=== PATIENT | male | born 1970 | race Caucasian/White ===

== ENCOUNTER 2024-04-14 10:54 | Inpatient (IN) | payer BC, MEDICAID ==
[~2024-04-14] VITALS: Ht 180.3 cm; Wt 127.0 kg
[~2024-04-14 10:54] MED LIST: XANAX
[2024-04-14 10:56] VITALS: BP_SYST 113; PULSE 108; RESP 18; TEMP 97.7; O2SAT 91
[2024-04-14 11:48] LABS: BASOPHILS % (AUTO) 0.3 % (0.0-2.0); EOSINOPHILS % (AUTO) 0.1 % (0.0-4.0); HEMATOCRIT 39.7 % (36-54); HEMOGLOBIN 13.9 g/dL (14.0-18.0); LYMPHOCYTES # (AUTO) 0.6 K/uL (1.0-5.5); MEAN CORPUSCULAR HEMOGLOBIN 37 pg (27-31); MEAN CORPUSCULAR HGB CONC 35 % (32-36); MEAN CORPUSCULAR VOLUME 107 fL (79.0-98.0); MONOCYTES # (AUTO) 0.8 K/uL (0.0-1.0); MONOCYTES % (AUTO) 7.1 % (1.7-9.3); NEUTROPHILS # (AUTO) 10.5 K/uL (1.8-7.7); NEUTROPHILS % (AUTO) 87.5 % (40.0-70.0); PLATELET COUNT (AUTO) 153 K/uL (130-430); RED BLOOD CELL COUNT(AUTO) 3.73 MIL/uL (4.2-6.2); RED CELL DISTRIBUTION WIDTH 16.3 % (9.0-15.0)
[2024-04-14 12:03] LABS: INR 1.7 (0.80-1.20); PROTHROMBIN TIME 17.3 SECS (9.5-12.5)
[2024-04-14 12:28] LABS: ALANINE AMINOTRANSFERASE 67 U/L (12-78); ALBUMIN 2.5 g/dL (3.4-4.8); ALCOHOL, BLOOD 115 mg/dL (<10); ANION GAP 10 (5-15); ASPARTATE AMINOTRANSFERASE 137 U/L (10-37); BILIRUBIN,DIRECT 5.8 mg/dL (0.0-0.3); CALCIUM 8.1 mg/dL (8.4-11.0); CARBON DIOXIDE 30 mmol/L (23-29); CREATININE 1.25 mg/dL (0.55-1.30); GFR AFRICAN AMERICAN 77 mL/min (>90); GLUCOSE 184 mg/dL (74-106); LIPASE 363 U/L (16-77); TOTAL BILIRUBIN 8.6 mg/dL (0.0-1.0); UREA NITROGEN, BLOOD 14 mg/dL (8-21)
[2024-04-14 12:35] LABS: CHLORIDE 79 mmol/L (98-107); GFR NON AFRICAN-AMERICAN 64 mL/min (>90); POTASSIUM 2.6 mmol/L (3.5-5.1); SODIUM SERUM 119 mmol/L (136-145)
[2024-04-14] MEDS: POTASSIUM CHLORIDE 20 MEQ TABLET.ER PO ONE (13:04)
[2024-04-14] MEDS ORDERED: METO50TA7 (13:25)
[2024-04-14] MEDS ORDERED: QUET300T2 (13:25)
[2024-04-14] MEDS ORDERED: MIRT-147 (13:25)
[2024-04-14 22:11] VITALS: BP_SYST 139; PULSE 82; RESP 18; TEMP 97.9
[2024-04-15 04:30] VITALS: BP_SYST 144; PULSE 82; RESP 18; TEMP 97.9; O2SAT 94
[2024-04-15 08:00] VITALS: BP_SYST 145; PULSE 89; RESP 20; TEMP 97.8; O2SAT 2; O2SAT 94
[2024-04-15] MEDS ORDERED: ONDANSETRON HCL 4 MG/2 ML VIAL IVP PRN (10:15)
[2024-04-15] MEDS ORDERED: HYDROcodone/ACETAMIN 5-325 MG TAB (NORCO/ VICODIN) PO PRN (10:15)
[2024-04-15] MEDS ORDERED: HYDROcodone/ACETAMIN 10-325 MG TAB PO PRN (10:15)
[2024-04-15] MEDS ORDERED: ACETAMINOPHEN 325 MG TABLET PO PRN (10:15)
[2024-04-15] MEDS ORDERED: NALOXONE HCL 0.4 MG/ML AMP (NARCAN) IVP PRN ×2 (10:15)
[2024-04-15 11:02] LABS: BASOPHILS % (AUTO) 0.2 % (0.0-2.0); EOSINOPHILS % (AUTO) 0.2 % (0.0-4.0); HEMATOCRIT 40.6 % (36-54); HEMOGLOBIN 14.1 g/dL (14.0-18.0); LYMPHOCYTES # (AUTO) 0.6 K/uL (1.0-5.5); LYMPHOCYTES % (AUTO) 5.2 % (20.5-51.5); MEAN CORPUSCULAR HEMOGLOBIN 37 pg (27-31); MEAN CORPUSCULAR HGB CONC 35 % (32-36); MEAN CORPUSCULAR VOLUME 106 fL (79.0-98.0); MONOCYTES % (AUTO) 7.8 % (1.7-9.3); NEUTROPHILS # (AUTO) 10.7 K/uL (1.8-7.7); NEUTROPHILS % (AUTO) 86.6 % (40.0-70.0); PLATELET COUNT (AUTO) 142 K/uL (130-430); RED BLOOD CELL COUNT(AUTO) 3.82 MIL/uL (4.2-6.2); RED CELL DISTRIBUTION WIDTH 16.3 % (9.0-15.0); WHITE BLOOD COUNT (AUTO) 12.3 K/uL (4.8-10.8)
[2024-04-15 11:17] LABS: ALBUMIN 2.3 g/dL (3.4-4.8); CALCIUM 8.2 mg/dL (8.4-11.0); CREATININE 1.18 mg/dL (0.55-1.30); POTASSIUM 3.1 mmol/L (3.5-5.1); TOTAL BILIRUBIN 9.8 mg/dL (0.0-1.0); TOTAL PROTEIN, SERUM 6.7 g/dL (6.4-8.3)
[2024-04-15 11:32] VITALS: BP_SYST 153; PULSE 93; RESP 16; TEMP 97.4; O2SAT 91
[2024-04-15] MEDS: LORazepam 2 MG/ML VIAL IVP PRN (12:00)
[2024-04-15] MEDS: FOLIC ACID 1 MG TABLET PO ONE (13:12)
[2024-04-15] MEDS: METOPROLOL SUCCINATE 50 MG TAB.SR.24H (TOPROL XL) PO ONE (13:14)
[2024-04-15] MEDS: MULTIVITAMINS TAB 1 TABLET PO ONE (13:15)
[2024-04-15] MEDS: THIAMINE HCL 100 MG TABLET PO ONE (13:22)
[2024-04-15] MEDS: NORMAL SALINE 5 ML DISP.SYRIN IVF SCH (15:11)
[2024-04-15] MEDS: chlordiazePOXIDE HCL 10 MG CAPSULE PO PRN (15:31)
[2024-04-15 15:57] VITALS: BP_SYST 138; PULSE 84; RESP 15; TEMP 97.8; O2SAT 96
[2024-04-15 19:00] VITALS: BP_SYST 136; PULSE 88; RESP 16; TEMP 97.6; O2SAT 96
[2024-04-15 20:00] VITALS: BP_SYST 136; PULSE 88; RESP 16; TEMP 97.6; O2SAT 96
[2024-04-15] MEDS: MIRTAZAPINE 15 MG TABLET PO SCH (23:35)
[2024-04-15] MEDS: QUEtiapine FUMARATE 100 MG TABLET PO SCH (23:35)
[2024-04-16] VITALS: BP_SYST 141; PULSE 84; RESP 16; TEMP 97.3; O2SAT 91
[2024-04-16 07:50] LABS: BASOPHILS % (AUTO) 0.2 % (0.0-2.0); EOSINOPHILS % (AUTO) 0.1 % (0.0-4.0); HEMATOCRIT 42.1 % (36-54); HEMOGLOBIN 14.6 g/dL (14.0-18.0); LYMPHOCYTES # (AUTO) 0.7 K/uL (1.0-5.5); LYMPHOCYTES % (AUTO) 5.5 % (20.5-51.5); MEAN CORPUSCULAR HEMOGLOBIN 37 pg (27-31); MEAN CORPUSCULAR HGB CONC 35 % (32-36); MEAN CORPUSCULAR VOLUME 108 fL (79.0-98.0); MONOCYTES # (AUTO) 0.9 K/uL (0.0-1.0); MONOCYTES % (AUTO) 7.1 % (1.7-9.3); NEUTROPHILS # (AUTO) 11.1 K/uL (1.8-7.7); NEUTROPHILS % (AUTO) 87.1 % (40.0-70.0); PLATELET COUNT (AUTO) 135 K/uL (130-430); RED BLOOD CELL COUNT(AUTO) 3.91 MIL/uL (4.2-6.2); RED CELL DISTRIBUTION WIDTH 16.3 % (9.0-15.0); WHITE BLOOD COUNT (AUTO) 12.7 K/uL (4.8-10.8)
[2024-04-16 08:00] VITALS: BP_SYST 150; PULSE 93; RESP 20; TEMP 97.6; O2SAT 91
[2024-04-16 08:07] LABS: ALBUMIN 2.3 g/dL (3.4-4.8); CALCIUM 8.3 mg/dL (8.4-11.0); CREATININE 1.05 mg/dL (0.55-1.30); POTASSIUM 3.3 mmol/L (3.5-5.1); TOTAL BILIRUBIN 10.9 mg/dL (0.0-1.0); TOTAL PROTEIN, SERUM 6.7 g/dL (6.4-8.3)
[2024-04-16 08:15] LABS: TOTAL IRON BIND. CAPACITY 149 ug/dL (250-450)
[2024-04-16 08:34] LABS: INR 1.7 (0.80-1.20); PROTHROMBIN TIME 17.1 SECS (9.5-12.5)
[2024-04-16] MEDS: THIAMINE HCL 100 MG TABLET PO SCH (09:00)
[2024-04-16] MEDS: MULTIVITAMINS TAB 1 TABLET PO SCH (09:00)
[2024-04-16] MEDS: METOPROLOL SUCCINATE 50 MG TAB.SR.24H (TOPROL XL) PO SCH (09:00)
[2024-04-16] MEDS: FOLIC ACID 1 MG TABLET PO SCH (09:00)
[2024-04-16 09:15] VITALS: O2SAT 92
[2024-04-16 11:12] VITALS: BP_SYST 149; PULSE 83; RESP 22; TEMP 97.8; O2SAT 93
[2024-04-16] MEDS: LACTULOSE 20 GM/30 ML UDC NG ONE (16:30)
[2024-04-16 16:48] VITALS: BP_SYST 150; PULSE 84; RESP 22; TEMP 97.9; O2SAT 94
[2024-04-16 20:00] VITALS: BP_SYST 140; PULSE 113; RESP 20; O2SAT 94
[2024-04-16] MEDS: prednisoLONE 15 MG/5 ML UDC PO ONE (21:00)
[2024-04-16] MEDS: cefTRIAXone 1 GM in D5W 50 ML IV SCH (22:05)
[2024-04-16] MEDS: LACTULOSE 20 GM/30 ML UDC NG SCH (22:50)
[2024-04-17] VITALS: BP_SYST 127; BP_SYST 157; PULSE 106; RESP 20; TEMP 97.4; O2SAT 91
[2024-04-17 07:16] LABS: BASOPHILS % (AUTO) 0.2 % (0.0-2.0); EOSINOPHILS % (AUTO) 0.1 % (0.0-4.0); HEMATOCRIT 44.7 % (36-54); HEMOGLOBIN 15.3 g/dL (14.0-18.0); LYMPHOCYTES # (AUTO) 0.9 K/uL (1.0-5.5); LYMPHOCYTES % (AUTO) 4.9 % (20.5-51.5); MEAN CORPUSCULAR HEMOGLOBIN 37 pg (27-31); MEAN CORPUSCULAR HGB CONC 34 % (32-36); MEAN CORPUSCULAR VOLUME 108 fL (79.0-98.0); MONOCYTES # (AUTO) 1.4 K/uL (0.0-1.0); MONOCYTES % (AUTO) 7.8 % (1.7-9.3); NEUTROPHILS # (AUTO) 16.1 K/uL (1.8-7.7); PLATELET COUNT (AUTO) 185 K/uL (130-430); RED BLOOD CELL COUNT(AUTO) 4.15 MIL/uL (4.2-6.2); RED CELL DISTRIBUTION WIDTH 16.6 % (9.0-15.0); WHITE BLOOD COUNT (AUTO) 18.5 K/uL (4.8-10.8)
[2024-04-17 07:33] LABS: INR 1.7 (0.80-1.20); PROTHROMBIN TIME 17.3 SECS (9.5-12.5)
[2024-04-17 07:50] LABS: CALCIUM 8.4 mg/dL (8.4-11.0); CREATININE 1.39 mg/dL (0.55-1.30); PHOSPHORUS 4.4 mg/dL (2.7-4.5); POTASSIUM 3.6 mmol/L (3.5-5.1); TOTAL BILIRUBIN 12.1 mg/dL (0.0-1.0); TOTAL PROTEIN, SERUM 6.4 g/dL (6.4-8.3)
[2024-04-17 08:00] VITALS: BP_SYST 123; PULSE 105; RESP 24; TEMP 98.7; O2SAT 95
[2024-04-17 08:07] LABS: ALPHA-1-ANTITRYPSIN, S 196 mg/dL (101-187)
[2024-04-17] MEDS: D5/0.45 NS 1,000 ML IV SCH (08:30)
[2024-04-17 09:07] LABS: AFP, TUMOR MARKER 2.5 ng/mL (0.0-8.4); HEPATITIS A AB, IgM Negative (Negative); HEPATITIS B CORE AB, IgM Negative (Negative); HEPATITIS B SURFACE AG Negative (Negative); HEPATITIS C VIRUS AB Non Reactive (Non Reactive)
[2024-04-17] MEDS: LACTULOSE 20 GM/30 ML UDC PO ONE (10:37)
[2024-04-17] MEDS: RIFAXIMIN 550 MG TABLET PO SCH (10:37)
[2024-04-17] MEDS: prednisoLONE 15 MG/5 ML UDC PO SCH (10:38)
[2024-04-17] MEDS: METOPROLOL SUCCINATE 50 MG TAB.SR.24H (TOPROL XL) PO ONE (10:45)
[2024-04-17 11:04] VITALS: BP_SYST 141; PULSE 107; RESP 22; TEMP 98; O2SAT 92
[2024-04-17 11:07] LABS: GAMMA GLUTAMYL TRANSFERASE 383 IU/L (0-65)
[2024-04-17 16:05] VITALS: BP_SYST 139; PULSE 101; RESP 22; TEMP 98.3; O2SAT 93
[2024-04-17 16:06] LABS: ANTI NUCLEAR AB WITH REFLEX Negative (Negative)
[2024-04-17] MEDS: ALBUMIN HUMAN 25% 50 ML IV SCH (18:13)
[2024-04-17 20:00] VITALS: O2SAT 92
[2024-04-17 20:47] VITALS: BP_SYST 134; PULSE 99; RESP 16; O2SAT 92
[2024-04-17] MEDS: DOXYCYCLINE HYCLATE 100 MG TABLET PO SCH (21:28)
[2024-04-18] VITALS: BP_SYST 141; PULSE 101; RESP 16; O2SAT 92
[2024-04-18 07:52] LABS: BASOPHILS % (AUTO) 0.2 % (0.0-2.0); EOSINOPHILS % (AUTO) 0.1 % (0.0-4.0); HEMATOCRIT 43.9 % (36-54); HEMOGLOBIN 14.9 g/dL (14.0-18.0); LYMPHOCYTES # (AUTO) 1.2 K/uL (1.0-5.5); LYMPHOCYTES % (AUTO) 5.4 % (20.5-51.5); MEAN CORPUSCULAR HEMOGLOBIN 37 pg (27-31); MEAN CORPUSCULAR HGB CONC 34 % (32-36); MEAN CORPUSCULAR VOLUME 108 fL (79.0-98.0); MONOCYTES % (AUTO) 9.2 % (1.7-9.3); NEUTROPHILS # (AUTO) 18.4 K/uL (1.8-7.7); NEUTROPHILS % (AUTO) 85.1 % (40.0-70.0); PLATELET COUNT (AUTO) 183 K/uL (130-430); RED BLOOD CELL COUNT(AUTO) 4.07 MIL/uL (4.2-6.2); WHITE BLOOD COUNT (AUTO) 21.7 K/uL (4.8-10.8)
[2024-04-18 08:12] LABS: ALBUMIN 2.5 g/dL (3.4-4.8); CALCIUM 8.6 mg/dL (8.4-11.0); CREATININE 1.36 mg/dL (0.55-1.30); PHOSPHORUS 4.2 mg/dL (2.7-4.5); POTASSIUM 3.4 mmol/L (3.5-5.1); TOTAL BILIRUBIN 13.5 mg/dL (0.0-1.0); TOTAL PROTEIN, SERUM 6.5 g/dL (6.4-8.3)
[2024-04-18 08:13] LABS: ERYTHROCYTE SEDIMENTATION RATE 36 MM/HR (0-15)
[2024-04-18 09:30] VITALS: O2SAT 95
[2024-04-18] MEDS: LACTULOSE 20 GM/30 ML UDC PO SCH (09:58)
[2024-04-18 11:04] VITALS: BP_SYST 145; PULSE 99; RESP 16; TEMP 98.4; O2SAT 99
[2024-04-18 11:09] VITALS: BP_SYST 149; PULSE 99; RESP 16; TEMP 98.4; O2SAT 99
[2024-04-18 15:12] VITALS: BP_SYST 137; PULSE 95; RESP 15; TEMP 97.3; O2SAT 93
[2024-04-18 20:00] VITALS: BP_SYST 129; PULSE 87; RESP 20; TEMP 98.4; O2SAT 97
[2024-04-19] VITALS (7 sets, daily range): BP systolic 115–146; PULSE 76–98; RESP 15–20; TEMP 97.5–98.6; O2SAT 95–98
[2024-04-19 07:51] LABS: HEMATOCRIT 42.9 % (36-54); HEMOGLOBIN 14.4 g/dL (14.0-18.0); MEAN CORPUSCULAR HEMOGLOBIN 36 pg (27-31); MEAN CORPUSCULAR HGB CONC 33 % (32-36); MEAN CORPUSCULAR VOLUME 109 fL (79.0-98.0); PLATELET COUNT (AUTO) 190 K/uL (130-430); RED BLOOD CELL COUNT(AUTO) 3.94 MIL/uL (4.2-6.2); RED CELL DISTRIBUTION WIDTH 17.3 % (9.0-15.0); WHITE BLOOD COUNT (AUTO) 26.7 K/uL (4.8-10.8)
[2024-04-19 08:13] LABS: ERYTHROCYTE SEDIMENTATION RATE 31 MM/HR (0-15)
[2024-04-19 08:14] LABS: ALBUMIN 2.3 g/dL (3.4-4.8); CALCIUM 8.5 mg/dL (8.4-11.0); CREATININE 1.13 mg/dL (0.55-1.30); POTASSIUM 3.4 mmol/L (3.5-5.1); TOTAL PROTEIN, SERUM 6.4 g/dL (6.4-8.3)
[2024-04-19 09:24] LABS: ANISOCYTOSIS 1+; BAND % (MANUAL) 3 % (0-6); BASOPHILS % (MANUAL) 0 % (0-2); EOSINOPHILS % (MANUAL) 0 % (0-7); LYMPHOCYTES % (MANUAL) 4 % (20-46); MONOCYTES % (MANUAL) 10 % (0-11); PLATELET ESTIMATE ADEQUATE (ADEQUATE); TARGET CELLS RARE
[2024-04-19] MEDS: ALBUMIN HUMAN 25% 100 ML IV SCH (09:25)
[2024-04-19] MEDS: CEFEPIME 1 GM in D5W 50 ML IV SCH (14:12)
[2024-04-20 00:16] VITALS: BP_SYST 160; PULSE 80; RESP 19; TEMP 98.5; O2SAT 92
[2024-04-20 08:04] LABS: BASOPHILS # (AUTO) 0.1 K/uL (0.0-0.2); BASOPHILS % (AUTO) 0.3 % (0.0-2.0); EOSINOPHILS # (AUTO) 0.1 K/uL (0.0-0.4); EOSINOPHILS % (AUTO) 0.3 % (0.0-4.0); HEMATOCRIT 38.7 % (36-54); HEMOGLOBIN 13.1 g/dL (14.0-18.0); LYMPHOCYTES # (AUTO) 1.4 K/uL (1.0-5.5); LYMPHOCYTES % (AUTO) 5.4 % (20.5-51.5); MEAN CORPUSCULAR HEMOGLOBIN 37 pg (27-31); MEAN CORPUSCULAR HGB CONC 34 % (32-36); MEAN CORPUSCULAR VOLUME 109 fL (79.0-98.0); MONOCYTES # (AUTO) 2.5 K/uL (0.0-1.0); MONOCYTES % (AUTO) 9.6 % (1.7-9.3); NEUTROPHILS # (AUTO) 21.6 K/uL (1.8-7.7); PLATELET COUNT (AUTO) 174 K/uL (130-430); RED BLOOD CELL COUNT(AUTO) 3.55 MIL/uL (4.2-6.2); RED CELL DISTRIBUTION WIDTH 16.5 % (9.0-15.0); WHITE BLOOD COUNT (AUTO) 25.6 K/uL (4.8-10.8)
[2024-04-20 08:13] LABS: ERYTHROCYTE SEDIMENTATION RATE 21 MM/HR (0-15)
[2024-04-20 08:15] LABS: NEUTROPHILS % (AUTO) 84.4 % (40.0-70.0)
[2024-04-20 08:17] LABS: INR 1.6 (0.80-1.20); PROTHROMBIN TIME 16.3 SECS (9.5-12.5)
[2024-04-20 08:57] LABS: ALBUMIN 3.1 g/dL (3.4-4.8); CALCIUM 8.8 mg/dL (8.4-11.0); CREATININE 0.99 mg/dL (0.55-1.30); POTASSIUM 3.4 mmol/L (3.5-5.1); TOTAL BILIRUBIN 13.8 mg/dL (0.0-1.0); TOTAL PROTEIN, SERUM 6.4 g/dL (6.4-8.3)
[2024-04-20 09:00] VITALS: O2SAT 94
[2024-04-20] MEDS: POTASSIUM CHLORIDE 20 MEQ/PKT PACKET NG ONE (10:59)
[2024-04-20 11:01] VITALS: BP_SYST 131; PULSE 85; RESP 20; TEMP 97.7; O2SAT 93
[2024-04-20] MEDS: FUROSEMIDE 20 MG TABLET PO ONE (12:28)
[2024-04-20] MEDS: SPIRONOLACTONE 50 MG TABLET (ALDACTONE) PO ONE (12:28)
[2024-04-20 15:06] LABS: ANTI-SMOOTH MUSCLE AB 11 Units (0-19)
[2024-04-20 16:14] VITALS: BP_SYST 134; PULSE 83; RESP 20; TEMP 97.8; O2SAT 94
[2024-04-20 20:00] VITALS: BP_SYST 124; PULSE 81; RESP 20; TEMP 98.1; O2SAT 95
[2024-04-21] VITALS: BP_SYST 133; PULSE 78; RESP 20; TEMP 98.3; O2SAT 96
[2024-04-21 07:47] LABS: BASOPHILS # (AUTO) 0.1 K/uL (0.0-0.2); BASOPHILS % (AUTO) 0.2 % (0.0-2.0); EOSINOPHILS # (AUTO) 0.1 K/uL (0.0-0.4); EOSINOPHILS % (AUTO) 0.4 % (0.0-4.0); HEMATOCRIT 40.2 % (36-54); HEMOGLOBIN 13.6 g/dL (14.0-18.0); LYMPHOCYTES # (AUTO) 1.2 K/uL (1.0-5.5); LYMPHOCYTES % (AUTO) 4.9 % (20.5-51.5); MEAN CORPUSCULAR HEMOGLOBIN 37 pg (27-31); MEAN CORPUSCULAR HGB CONC 34 % (32-36); MEAN CORPUSCULAR VOLUME 109 fL (79.0-98.0); NEUTROPHILS # (AUTO) 21.9 K/uL (1.8-7.7); PLATELET COUNT (AUTO) 140 K/uL (130-430); RED BLOOD CELL COUNT(AUTO) 3.67 MIL/uL (4.2-6.2); RED CELL DISTRIBUTION WIDTH 17.2 % (9.0-15.0); WHITE BLOOD COUNT (AUTO) 25.4 K/uL (4.8-10.8)
[2024-04-21 08:15] VITALS: BP_SYST 130; PULSE 93; RESP 18; TEMP 97.6; O2SAT 93
[2024-04-21 08:19] LABS: ALBUMIN 2.5 g/dL (3.4-4.8); CALCIUM 8.7 mg/dL (8.4-11.0); CREATININE 1.12 mg/dL (0.55-1.30); POTASSIUM 3.8 mmol/L (3.5-5.1); TOTAL PROTEIN, SERUM 6.2 g/dL (6.4-8.3)
[2024-04-21 08:22] LABS: NEUTROPHILS % (AUTO) 86.5 % (40.0-70.0)
[2024-04-21 08:45] VITALS: O2SAT 93
[2024-04-21 08:51] LABS: ERYTHROCYTE SEDIMENTATION RATE 22 MM/HR (0-15)
[2024-04-21 08:56] LABS: TOTAL BILIRUBIN 15.5 mg/dL (0.0-1.0)
[2024-04-21] MEDS: SPIRONOLACTONE 50 MG TABLET (ALDACTONE) PO SCH (09:57)
[2024-04-21] MEDS: FUROSEMIDE 20 MG TABLET PO SCH (09:58)
[2024-04-21 11:05] VITALS: BP_SYST 127; PULSE 94; RESP 16; TEMP 98.1; O2SAT 94
[2024-04-21 15:23] VITALS: BP_SYST 132; PULSE 84; RESP 16; TEMP 97.8; O2SAT 98
[2024-04-21 20:00] VITALS: BP_SYST 115; PULSE 76; RESP 18; TEMP 97.5; O2SAT 96
[2024-04-21] MEDS: LACTULOSE 20 GM/30 ML UDC PO SCH (20:27)
[2024-04-22] VITALS: BP_SYST 116; PULSE 84; RESP 18; TEMP 98.2; O2SAT 96
[2024-04-22 08:00] VITALS: O2SAT 94
[2024-04-22 08:10] LABS: BASOPHILS # (AUTO) 0.1 K/uL (0.0-0.2); BASOPHILS % (AUTO) 0.4 % (0.0-2.0); EOSINOPHILS # (AUTO) 0.1 K/uL (0.0-0.4); EOSINOPHILS % (AUTO) 0.5 % (0.0-4.0); HEMATOCRIT 39.7 % (36-54); HEMOGLOBIN 13.3 g/dL (14.0-18.0); LYMPHOCYTES # (AUTO) 1.3 K/uL (1.0-5.5); MEAN CORPUSCULAR HEMOGLOBIN 37 pg (27-31); MEAN CORPUSCULAR HGB CONC 34 % (32-36); MEAN CORPUSCULAR VOLUME 110 fL (79.0-98.0); MONOCYTES # (AUTO) 1.9 K/uL (0.0-1.0); MONOCYTES % (AUTO) 7.4 % (1.7-9.3); NEUTROPHILS # (AUTO) 22.3 K/uL (1.8-7.7); NEUTROPHILS % (AUTO) 86.7 % (40.0-70.0); PLATELET COUNT (AUTO) 139 K/uL (130-430); RED CELL DISTRIBUTION WIDTH 16.5 % (9.0-15.0); WHITE BLOOD COUNT (AUTO) 25.7 K/uL (4.8-10.8)
[2024-04-22 08:28] LABS: ERYTHROCYTE SEDIMENTATION RATE 28 MM/HR (0-15)
[2024-04-22 08:46] LABS: ALBUMIN 2.4 g/dL (3.4-4.8); CALCIUM 8.8 mg/dL (8.4-11.0); CREATININE 1.07 mg/dL (0.55-1.30); POTASSIUM 3.7 mmol/L (3.5-5.1); TOTAL PROTEIN, SERUM 6.2 g/dL (6.4-8.3)
[2024-04-22 09:16] LABS: TOTAL BILIRUBIN 15.3 mg/dL (0.0-1.0)
[2024-04-22 11:10] VITALS: BP_SYST 129; PULSE 85; RESP 16; TEMP 97.1; O2SAT 95
[2024-04-22 15:04] VITALS: BP_SYST 122; PULSE 86; RESP 16; TEMP 97.4; O2SAT 94
[2024-04-22] MEDS: ALBUMIN HUMAN 25% 50 ML IV ONE (15:49)
[2024-04-22 20:00] VITALS: O2SAT 95
[2024-04-23 00:08] VITALS: BP_SYST 124; PULSE 79; RESP 18; TEMP 98.4; O2SAT 94
[2024-04-23 07:13] LABS: BASOPHILS % (AUTO) 0.2 % (0.0-2.0); EOSINOPHILS # (AUTO) 0.2 K/uL (0.0-0.4); EOSINOPHILS % (AUTO) 0.9 % (0.0-4.0); HEMATOCRIT 38.4 % (36-54); HEMOGLOBIN 12.8 g/dL (14.0-18.0); LYMPHOCYTES # (AUTO) 1.4 K/uL (1.0-5.5); LYMPHOCYTES % (AUTO) 5.6 % (20.5-51.5); MEAN CORPUSCULAR HEMOGLOBIN 37 pg (27-31); MEAN CORPUSCULAR HGB CONC 33 % (32-36); MEAN CORPUSCULAR VOLUME 110 fL (79.0-98.0); MONOCYTES # (AUTO) 1.9 K/uL (0.0-1.0); MONOCYTES % (AUTO) 7.6 % (1.7-9.3); NEUTROPHILS % (AUTO) 85.7 % (40.0-70.0); PLATELET COUNT (AUTO) 134 K/uL (130-430); RED BLOOD CELL COUNT(AUTO) 3.48 MIL/uL (4.2-6.2); RED CELL DISTRIBUTION WIDTH 17.1 % (9.0-15.0); WHITE BLOOD COUNT (AUTO) 24.5 K/uL (4.8-10.8)
[2024-04-23 07:30] LABS: ALBUMIN 2.4 g/dL (3.4-4.8); CALCIUM 8.5 mg/dL (8.4-11.0); CREATININE 1.19 mg/dL (0.55-1.30); POTASSIUM 3.7 mmol/L (3.5-5.1); TOTAL PROTEIN, SERUM 6.2 g/dL (6.4-8.3)
[2024-04-23 08:00] VITALS: O2SAT 94
[2024-04-23 08:20] LABS: ERYTHROCYTE SEDIMENTATION RATE 32 MM/HR (0-15)
[2024-04-23 08:57] LABS: TOTAL BILIRUBIN 15.8 mg/dL (0.0-1.0)
[2024-04-23 12:45] VITALS: BP_SYST 111; PULSE 75; RESP 16; TEMP 97.6; O2SAT 94
[2024-04-23 15:13] LABS: APPEARANCE,SPUN,BODY FLUID CLEAR (CLEAR); BF APPEARANCE UNSPUN CLEAR (CLEAR); BODY FLUID SOURCE/ TYPE ASCITES; SOURCE/TYPE ,BODY FLUID PARACENTESIS
[2024-04-23 15:14] LABS: BODY FLUID COLOR YELLOW (LT YELLOW); BODY FLUID TOTAL VOLUME 6550 mL; EOSINOPHIL, BODY FLUID 0 %; LYMPHOCYTES, BODY FLUID 57 %; MONOCYTES,BODY FLUID 13 %; NEUTROPHIL, BODY FLUID 30 %; RBC, BODY FLUID 710 /uL; WBC, BODY FLUID 123 /uL
[2024-04-23 16:41] VITALS: BP_SYST 125; PULSE 74; RESP 16; TEMP 97.8; O2SAT 93
[2024-04-23 18:29] LABS: BODY FLUID GLUCOSE 151 mg/dL; BODY FLUID TOTAL PROTEIN 0.8 g/dL
[2024-04-23 20:00] VITALS: BP_SYST 120; PULSE 80; RESP 20; TEMP 98.4; O2SAT 95
[2024-04-24 00:03] VITALS: BP_SYST 114; PULSE 75; RESP 16; TEMP 97.6; O2SAT 99
[2024-04-24 05:32] LABS: BASOPHILS # (AUTO) 0.1 K/uL (0.0-0.2); BASOPHILS % (AUTO) 0.4 % (0.0-2.0); EOSINOPHILS # (AUTO) 0.2 K/uL (0.0-0.4); EOSINOPHILS % (AUTO) 0.6 % (0.0-4.0); HEMATOCRIT 37.8 % (36-54); HEMOGLOBIN 12.7 g/dL (14.0-18.0); LYMPHOCYTES # (AUTO) 1.6 K/uL (1.0-5.5); LYMPHOCYTES % (AUTO) 6.5 % (20.5-51.5); MEAN CORPUSCULAR HEMOGLOBIN 37 pg (27-31); MEAN CORPUSCULAR HGB CONC 34 % (32-36); MEAN CORPUSCULAR VOLUME 110 fL (79.0-98.0); MONOCYTES # (AUTO) 1.6 K/uL (0.0-1.0); MONOCYTES % (AUTO) 6.5 % (1.7-9.3); NEUTROPHILS # (AUTO) 21.3 K/uL (1.8-7.7); PLATELET COUNT (AUTO) 132 K/uL (130-430); RED BLOOD CELL COUNT(AUTO) 3.43 MIL/uL (4.2-6.2); RED CELL DISTRIBUTION WIDTH 16.4 % (9.0-15.0); WHITE BLOOD COUNT (AUTO) 24.8 K/uL (4.8-10.8)
[2024-04-24 06:20] LABS: ALBUMIN 2.2 g/dL (3.4-4.8); CALCIUM 8.4 mg/dL (8.4-11.0); CREATININE 1.17 mg/dL (0.55-1.30); POTASSIUM 3.8 mmol/L (3.5-5.1); TOTAL BILIRUBIN 14.2 mg/dL (0.0-1.0)
[2024-04-24 07:41] VITALS: BP_SYST 112; PULSE 76; RESP 18; TEMP 98; O2SAT 97
[2024-04-24 07:42] LABS: ERYTHROCYTE SEDIMENTATION RATE 47 MM/HR (0-15)
[2024-04-24 08:00] VITALS: O2SAT 95
[2024-04-24 11:14] VITALS: BP_SYST 111; PULSE 72; RESP 16; TEMP 97.5; O2SAT 100
[2024-04-24 15:24] VITALS: BP_SYST 121; PULSE 79; RESP 16; TEMP 96.7; O2SAT 93
[2024-04-24 20:00] VITALS: O2SAT 92
[2024-04-25] VITALS: BP_SYST 115; PULSE 89; RESP 22; TEMP 98.6; O2SAT 92
[2024-04-25] MEDS: LORazepam 2 MG/ML VIAL IVP PRN (02:33)
[2024-04-25 08:00] VITALS: BP_SYST 119; PULSE 81; RESP 16; TEMP 96.9; O2SAT 93
[2024-04-25 08:57] LABS: ALBUMIN 2.2 g/dL (3.4-4.8); CALCIUM 8.4 mg/dL (8.4-11.0); CREATININE 1.4 mg/dL (0.55-1.30); PHOSPHORUS 3.8 mg/dL (2.7-4.5); POTASSIUM 3.9 mmol/L (3.5-5.1); TOTAL BILIRUBIN 13.8 mg/dL (0.0-1.0); TOTAL PROTEIN, SERUM 6.5 g/dL (6.4-8.3)
[2024-04-25 09:03] LABS: BASOPHILS # (AUTO) 0.1 K/uL (0.0-0.2); EOSINOPHILS # (AUTO) 0.1 K/uL (0.0-0.4); HEMOGLOBIN 12.7 g/dL (14.0-18.0)
[2024-04-25 09:06] LABS: BASOPHILS % (AUTO) 0.5 % (0.0-2.0); EOSINOPHILS % (AUTO) 0.5 % (0.0-4.0); HEMATOCRIT 37.3 % (36-54); LYMPHOCYTES # (AUTO) 1.8 K/uL (1.0-5.5); MEAN CORPUSCULAR HEMOGLOBIN 38 pg (27-31); MEAN CORPUSCULAR HGB CONC 34 % (32-36); MEAN CORPUSCULAR VOLUME 111 fL (79.0-98.0); MONOCYTES # (AUTO) 1.9 K/uL (0.0-1.0); MONOCYTES % (AUTO) 7.3 % (1.7-9.3); NEUTROPHILS % (AUTO) 84.7 % (40.0-70.0); PLATELET COUNT (AUTO) 137 K/uL (130-430); RED BLOOD CELL COUNT(AUTO) 3.36 MIL/uL (4.2-6.2); RED CELL DISTRIBUTION WIDTH 16.9 % (9.0-15.0)
[2024-04-25 09:32] LABS: ERYTHROCYTE SEDIMENTATION RATE 50 MM/HR (0-15)
[2024-04-25] MEDS: RIFAXIMIN 550 MG TABLET PO SCH (09:57)
[2024-04-25 11:01] VITALS: BP_SYST 116; PULSE 94; RESP 16; TEMP 97; O2SAT 93
[2024-04-25] MEDS: ALBUMIN HUMAN 25% 100 ML IV SCH (14:30)
[2024-04-25 15:04] VITALS: BP_SYST 121; PULSE 80; RESP 15; TEMP 97.7; O2SAT 94
[2024-04-25 20:00] VITALS: BP_SYST 107; PULSE 77; RESP 19; TEMP 99; O2SAT 96
[2024-04-25 21:40] VITALS: O2SAT 96
[2024-04-26] VITALS (7 sets, daily range): BP systolic 103–123; PULSE 74–88; RESP 16–20; TEMP 97.3–98.7; O2SAT 92–99
[2024-04-26 06:08] LABS: BASOPHILS # (AUTO) 0.1 K/uL (0.0-0.2); BASOPHILS % (AUTO) 0.3 % (0.0-2.0); EOSINOPHILS # (AUTO) 0.2 K/uL (0.0-0.4); EOSINOPHILS % (AUTO) 0.8 % (0.0-4.0); HEMOGLOBIN 11.2 g/dL (14.0-18.0); LYMPHOCYTES # (AUTO) 1.6 K/uL (1.0-5.5); LYMPHOCYTES % (AUTO) 7.1 % (20.5-51.5); MEAN CORPUSCULAR HEMOGLOBIN 38 pg (27-31); MEAN CORPUSCULAR HGB CONC 34 % (32-36); MEAN CORPUSCULAR VOLUME 111 fL (79.0-98.0); MONOCYTES # (AUTO) 1.3 K/uL (0.0-1.0); MONOCYTES % (AUTO) 5.6 % (1.7-9.3); NEUTROPHILS # (AUTO) 19.9 K/uL (1.8-7.7); NEUTROPHILS % (AUTO) 86.2 % (40.0-70.0); PLATELET COUNT (AUTO) 114 K/uL (130-430); RED BLOOD CELL COUNT(AUTO) 2.98 MIL/uL (4.2-6.2); RED CELL DISTRIBUTION WIDTH 17.1 % (9.0-15.0); WHITE BLOOD COUNT (AUTO) 23.1 K/uL (4.8-10.8)
[2024-04-26 07:01] LABS: CALCIUM 8.7 mg/dL (8.4-11.0); CREATININE 1.23 mg/dL (0.55-1.30); POTASSIUM 3.7 mmol/L (3.5-5.1); TOTAL PROTEIN, SERUM 6.4 g/dL (6.4-8.3)
[2024-04-26 08:29] LABS: ERYTHROCYTE SEDIMENTATION RATE 81 MM/HR (0-15)
[2024-04-27] VITALS (8 sets, daily range): BP systolic 109–118; PULSE 70–81; RESP 16–20; TEMP 97–98.8; O2SAT 92–97
[2024-04-27 07:02] LABS: BASOPHILS # (AUTO) 0.1 K/uL (0.0-0.2); BASOPHILS % (AUTO) 0.4 % (0.0-2.0); EOSINOPHILS # (AUTO) 0.2 K/uL (0.0-0.4); EOSINOPHILS % (AUTO) 0.8 % (0.0-4.0); HEMATOCRIT 36.1 % (36-54); LYMPHOCYTES # (AUTO) 1.5 K/uL (1.0-5.5); LYMPHOCYTES % (AUTO) 6.7 % (20.5-51.5); MEAN CORPUSCULAR HEMOGLOBIN 38 pg (27-31); MEAN CORPUSCULAR HGB CONC 33 % (32-36); MEAN CORPUSCULAR VOLUME 113 fL (79.0-98.0); MONOCYTES # (AUTO) 1.5 K/uL (0.0-1.0); MONOCYTES % (AUTO) 6.4 % (1.7-9.3); NEUTROPHILS # (AUTO) 19.6 K/uL (1.8-7.7); NEUTROPHILS % (AUTO) 85.7 % (40.0-70.0); PLATELET COUNT (AUTO) 115 K/uL (130-430); RED BLOOD CELL COUNT(AUTO) 3.21 MIL/uL (4.2-6.2); RED CELL DISTRIBUTION WIDTH 17.2 % (9.0-15.0); WHITE BLOOD COUNT (AUTO) 22.9 K/uL (4.8-10.8)
[2024-04-27 07:29] LABS: ALBUMIN 2.6 g/dL (3.4-4.8); CALCIUM 8.7 mg/dL (8.4-11.0); CREATININE 1.06 mg/dL (0.55-1.30); PHOSPHORUS 3.8 mg/dL (2.7-4.5); POTASSIUM 3.9 mmol/L (3.5-5.1); TOTAL BILIRUBIN 13.2 mg/dL (0.0-1.0); TOTAL PROTEIN, SERUM 6.3 g/dL (6.4-8.3)
[2024-04-27 07:47] LABS: ERYTHROCYTE SEDIMENTATION RATE 35 MM/HR (0-15)
[2024-04-28] VITALS: BP_SYST 145; PULSE 86; RESP 16; TEMP 98.7; O2SAT 95
[2024-04-28 01:30] VITALS: RESP 20; TEMP 97; O2SAT 97
[2024-04-28 07:10] LABS: HEMATOCRIT 35.9 % (36-54); MEAN CORPUSCULAR HEMOGLOBIN 38 pg (27-31); MEAN CORPUSCULAR HGB CONC 34 % (32-36); MEAN CORPUSCULAR VOLUME 112 fL (79.0-98.0); PLATELET COUNT (AUTO) 129 K/uL (130-430); RED CELL DISTRIBUTION WIDTH 17.4 % (9.0-15.0); WHITE BLOOD COUNT (AUTO) 23.5 K/uL (4.8-10.8)
[2024-04-28 07:45] LABS: ERYTHROCYTE SEDIMENTATION RATE 48 MM/HR (0-15)
[2024-04-28 08:00] VITALS: O2SAT 97
[2024-04-28 08:06] LABS: ALBUMIN 2.6 g/dL (3.4-4.8); CALCIUM 8.8 mg/dL (8.4-11.0); CREATININE 1.28 mg/dL (0.55-1.30); TOTAL BILIRUBIN 11.9 mg/dL (0.0-1.0); TOTAL PROTEIN, SERUM 6.8 g/dL (6.4-8.3)
[2024-04-28 10:40] LABS: ANISOCYTOSIS 1+; BASOPHILS % (MANUAL) 0 % (0-2); EOSINOPHILS % (MANUAL) 1 % (0-7); LYMPHOCYTES % (MANUAL) 5 % (20-46); MONOCYTES % (MANUAL) 10 % (0-11); PLATELET ESTIMATE DECREASED (ADEQUATE)
[2024-04-28 10:41] LABS: TARGET CELLS FEW
[2024-04-28 11:01] VITALS: BP_SYST 134; PULSE 74; RESP 16; TEMP 96.7; O2SAT 93
[2024-04-28 11:28] LABS: INR 1.4 (0.80-1.20); PROTHROMBIN TIME 14.8 SECS (9.5-12.5)
[2024-04-28 20:00] VITALS: BP_SYST 126; PULSE 77; RESP 20; TEMP 96.8; O2SAT 95
[2024-04-29 01:14] VITALS: BP_SYST 103; PULSE 82; RESP 20; TEMP 97.8; O2SAT 95
[2024-04-29 01:20] VITALS: RESP 20; TEMP 97; O2SAT 95
[2024-04-29 07:16] LABS: BASOPHILS # (AUTO) 0.1 K/uL (0.0-0.2); BASOPHILS % (AUTO) 0.3 % (0.0-2.0); EOSINOPHILS # (AUTO) 0.2 K/uL (0.0-0.4); EOSINOPHILS % (AUTO) 0.8 % (0.0-4.0); HEMATOCRIT 37.7 % (36-54); HEMOGLOBIN 12.8 g/dL (14.0-18.0); LYMPHOCYTES # (AUTO) 1.9 K/uL (1.0-5.5); LYMPHOCYTES % (AUTO) 7.7 % (20.5-51.5); MEAN CORPUSCULAR HEMOGLOBIN 38 pg (27-31); MEAN CORPUSCULAR HGB CONC 34 % (32-36); MEAN CORPUSCULAR VOLUME 113 fL (79.0-98.0); MONOCYTES # (AUTO) 1.4 K/uL (0.0-1.0); MONOCYTES % (AUTO) 5.8 % (1.7-9.3); NEUTROPHILS # (AUTO) 20.6 K/uL (1.8-7.7); NEUTROPHILS % (AUTO) 85.4 % (40.0-70.0); PLATELET COUNT (AUTO) 110 K/uL (130-430); RED BLOOD CELL COUNT(AUTO) 3.34 MIL/uL (4.2-6.2); RED CELL DISTRIBUTION WIDTH 17.5 % (9.0-15.0); WHITE BLOOD COUNT (AUTO) 24.2 K/uL (4.8-10.8)
[2024-04-29 07:35] LABS: ERYTHROCYTE SEDIMENTATION RATE 49 MM/HR (0-15)
[2024-04-29 08:00] VITALS: O2SAT 94
[2024-04-29 08:23] LABS: ALBUMIN 2.5 g/dL (3.4-4.8); CALCIUM 8.9 mg/dL (8.4-11.0); CREATININE 1.21 mg/dL (0.55-1.30); POTASSIUM 4.3 mmol/L (3.5-5.1); TOTAL PROTEIN, SERUM 6.9 g/dL (6.4-8.3)
[2024-04-29 08:37] LABS: TOTAL BILIRUBIN 10.1 mg/dL (0.0-1.0)
[2024-04-29 12:42] VITALS: BP_SYST 119; PULSE 86; RESP 16; TEMP 96.7; O2SAT 97
[2024-04-29 16:36] VITALS: BP_SYST 106; PULSE 74; RESP 18; TEMP 97.3; O2SAT 99
[2024-04-29 20:00] VITALS: BP_SYST 97; PULSE 73; RESP 20; TEMP 97.6; O2SAT 97
[2024-04-29 23:45] LABS: BODY FLUID SOURCE/ TYPE PARACENTESIS
[2024-04-29 23:46] LABS: BF APPEARANCE UNSPUN HAZY (CLEAR); BODY FLUID COLOR YELLOW (LT YELLOW); BODY FLUID TOTAL VOLUME 1150 mL
[2024-04-30 00:53] VITALS: BP_SYST 105; PULSE 74; RESP 17; O2SAT 96
[2024-04-30 01:12] VITALS: RESP 20; TEMP 97.3; O2SAT 96
[2024-04-30 05:08] LABS: ERYTHROCYTE SEDIMENTATION RATE 56 MM/HR (0-15)
[2024-04-30 05:18] LABS: BASOPHILS # (AUTO) 0.1 K/uL (0.0-0.2); BASOPHILS % (AUTO) 0.5 % (0.0-2.0); EOSINOPHILS # (AUTO) 0.3 K/uL (0.0-0.4); HEMATOCRIT 37.1 % (36-54); HEMOGLOBIN 12.5 g/dL (14.0-18.0); LYMPHOCYTES # (AUTO) 2.4 K/uL (1.0-5.5); LYMPHOCYTES % (AUTO) 9.3 % (20.5-51.5); MEAN CORPUSCULAR HEMOGLOBIN 38 pg (27-31); MEAN CORPUSCULAR HGB CONC 34 % (32-36); MEAN CORPUSCULAR VOLUME 113 fL (79.0-98.0); MONOCYTES # (AUTO) 1.9 K/uL (0.0-1.0); MONOCYTES % (AUTO) 7.2 % (1.7-9.3); NEUTROPHILS # (AUTO) 21.5 K/uL (1.8-7.7); PLATELET COUNT (AUTO) 133 K/uL (130-430); RED BLOOD CELL COUNT(AUTO) 3.28 MIL/uL (4.2-6.2); RED CELL DISTRIBUTION WIDTH 17.8 % (9.0-15.0); WHITE BLOOD COUNT (AUTO) 26.2 K/uL (4.8-10.8)
[2024-04-30 05:50] LABS: ALBUMIN 2.3 g/dL (3.4-4.8); CALCIUM 8.7 mg/dL (8.4-11.0); CREATININE 1.1 mg/dL (0.55-1.30); POTASSIUM 4.5 mmol/L (3.5-5.1); TOTAL BILIRUBIN 10.8 mg/dL (0.0-1.0); TOTAL PROTEIN, SERUM 6.8 g/dL (6.4-8.3)
[2024-04-30 08:00] VITALS: O2SAT 95
[2024-04-30 08:49] LABS: SOURCE/TYPE ,BODY FLUID PARACENTESIS
[2024-04-30] MEDS ORDERED: LACT10SO6 PO (09:28)
[2024-04-30] MEDS ORDERED: SPIR50TA PO (09:28)
[2024-04-30] MEDS ORDERED: RIFA550T5 PO (09:28)
[2024-04-30] MEDS ORDERED: FOLI-43 PO (09:28)
[2024-04-30] MEDS ORDERED: LEVO-62 PO (09:28)
[2024-04-30] MEDS ORDERED: MULT400T13 PO (09:28)
[2024-04-30] MEDS ORDERED: FURO-150 PO (09:28)
[2024-04-30] MEDS ORDERED: THIA100T70 PO (09:28)
[2024-04-30 12:38] VITALS: BP_SYST 104; PULSE 87; RESP 18; TEMP 97.7; O2SAT 98
[2024-04-30 12:51] LABS: EOSINOPHIL, BODY FLUID 0 %; LYMPHOCYTES, BODY FLUID 65 %; MONOCYTES,BODY FLUID 22 %; NEUTROPHIL, BODY FLUID 13 %; RBC, BODY FLUID 483 /uL
[2024-04-30 12:57] LABS: WBC, BODY FLUID 58 /uL
[2024-04-30 18:36] VITALS: BP_SYST 111; PULSE 77; RESP 18; TEMP 97.3; O2SAT 98
[2024-04-30 20:04] VITALS: BP_SYST 119; PULSE 78; RESP 17; TEMP 97.6; O2SAT 98
[2024-05-01] MEDS ORDERED: BALSAM PERU/CASTOR OIL 56.7 GM OINT...G. TP SCH (09:00)
== END 2024-04-30 21:28 | disposition hospice, home (50) | DRG 720 ==
LOC: SED 10:54 → SMU 14:02
PROVIDERS: ADMIT Preventive Medicine Preventive Medicine/Occupational Environmental Medicine; ATTEND Preventive Medicine Preventive Medicine/Occupational Environmental Medicine
PROC: 0W9G3ZZ Drainage of Peritoneal Cavity, Percutaneous Approach (ICD-10-PCS; principal; 2024-04-14)
PROC: 0W9G3ZZ Drainage of Peritoneal Cavity, Percutaneous Approach (ICD-10-PCS; 2024-04-23)
PROC: 0W9G3ZZ Drainage of Peritoneal Cavity, Percutaneous Approach (ICD-10-PCS; 2024-04-28)
DX: A41.9 Sepsis, unspecified organism (principal); J96.00 Acute respiratory failure, unspecified whether with hypoxia or hypercapnia; G93.41 Metabolic encephalopathy; E43 Unspecified severe protein-calorie malnutrition; K85.90 Acute pancreatitis without necrosis or infection, unspecified; I13.2 Hypertensive heart and chronic kidney disease with heart failure and with stage 5 chronic kidney disease, or end stage renal disease; K65.2 Spontaneous bacterial peritonitis; D68.4 Acquired coagulation factor deficiency; K76.82 Hepatic encephalopathy; J18.9 Pneumonia, unspecified organism; N17.9 Acute kidney failure, unspecified; E87.1 Hypo-osmolality and hyponatremia; E88.09 Other disorders of plasma-protein metabolism, not elsewhere classified; D63.8 Anemia in other chronic diseases classified elsewhere; Z51.5 Encounter for palliative care; I50.9 Heart failure, unspecified; K70.11 Alcoholic hepatitis with ascites; E87.6 Hypokalemia; E80.6 Other disorders of bilirubin metabolism; R73.9 Hyperglycemia, unspecified; F10.20 Alcohol dependence, uncomplicated; K70.31 Alcoholic cirrhosis of liver with ascites; E66.9 Obesity, unspecified; K80.20 Calculus of gallbladder without cholecystitis without obstruction; D69.6 Thrombocytopenia, unspecified; E77.8 Other disorders of glycoprotein metabolism; E83.51 Hypocalcemia; E87.0 Hyperosmolality and hypernatremia; E87.5 Hyperkalemia; Z68.39 Body mass index [BMI] 39.0-39.9, adult; Z79.899 Other long term (current) drug therapy; Y90.5 Blood alcohol level of 100-119 mg/100 ml; N18.6 End stage renal disease; F10.229 Alcohol dependence with intoxication, unspecified
CPT/HCPCS: 36415; 49083; 70450-TC; 71045; 74150-TC; 76700; 76705; 80048; 80053; 80074; 80076; 82042; 82103; 82105; 82140; 82248; 82947; 83516; 83540; 83550; 83690; 83735; 83880; 84100; 84157; 84302; 84484; 85007; 85025; 85027; 85610; 85651; 85730; 86038; 87040; 87070; 87086; 88108; 89051; 89060; 93005; 93971; 97110-GP; 97112-GP; 97116-GP; 97530-GP; 99291; G0482; J0692; J0696; J2060; J7030; J7040; J7050; J7060; P9046